=== PATIENT | female | born 1950 ===

== ENCOUNTER 2018-08-10 07:21 | Day surgery (SDC) | payer OTHER ==
[~2018-08-10] VITALS: Ht 142.2 cm; Wt 87.1 kg
[2018-08-10] MEDS ORDERED: LIDOCAINE 2% 1000 MG/50 ML VIAL INJ ONE (10:12)
[2018-08-10] MEDS ORDERED: fentaNYL 0.05 MG/ML VIAL ONE (10:22)
[2018-08-10] MEDS ORDERED: fentaNYL 0.05 MG/ML VIAL IVP ONE (10:25)
== END 2018-08-10 11:29 | disposition home or self-care (01) ==
LOC: MDS 07:21 → MMU 07:21 → MDS 11:29
PROVIDERS: ATTEND Internal Medicine Gastroenterology
DX: K75.89 Other specified inflammatory liver diseases (principal); K74.0 Hepatic fibrosis; E11.9 Type 2 diabetes mellitus without complications; I10 Essential (primary) hypertension; E78.5 Hyperlipidemia, unspecified; F41.9 Anxiety disorder, unspecified; E66.9 Obesity, unspecified; Z68.41 Body mass index [BMI] 40.0-44.9, adult; Z79.899 Other long term (current) drug therapy; Z90.49 Acquired absence of other specified parts of digestive tract; Z79.84 Long term (current) use of oral hypoglycemic drugs; Z79.82 Long term (current) use of aspirin
CPT/HCPCS: 47000; 76942; 88307; 88313; J2001; J3010; Q0092